=== PATIENT | female | born 1960 | race Caucasian/White ===

== ENCOUNTER → 2020-01-05 | Outpatient (CLI) | payer OTHER ==
[~2020-01-05] MED LIST: GADOBUTROL 10 MMOL/10 ML (GADAVIST) VIAL IV ONE
--- NOTE | 2020-01-05 11:03 | Diagnostic Imaging Report ---
PROCEDURE: MR imaging of the brain with and without contrast. TECHNIQUE: Multiplanar, multisequence MR imaging of the brain was performed with and without contrast. INDICATION: Headaches. Speech disturbance. COMPARISON: None. FINDINGS: No abnormal intracranial signal or enhancement. No restricted water diffusion or hemosiderin deposition. Normal morphology including the major midline structures, sella, posterior fossa and cerebellar pontine angle. No hydrocephalus or extra-axial fluid collections. Normal intracranial flow voids. The orbits are negative on this nondedicated exam. Small amount of fluid in the right mastoid. The paranasal sinuses are clear. Normal bone marrow signal. IMPRESSION: 1. Normal MRI of the brain without and with IV contrast. No acute findings. 2. Small amount of nonspecific fluid in the right mastoid. Dictated by: Dictated on workstation # [id number]
== END ==
LOC: RAD 09:20
PROVIDERS: ATTEND Family Medicine
DX: R51 Headache (principal); R47.9 Unspecified speech disturbances
CPT/HCPCS: 70553

== ENCOUNTER → 2021-03-18 | Outpatient (CLI) | payer OTHER ==
--- NOTE | 2021-03-18 11:50 | Diagnostic Imaging Report ---
INDICATION: FAMILY HX OF AORTIC ANEURYSM TECHNIQUE: Grayscale sonographic images of the abdominal aorta. CORRELATION STUDY: None FINDINGS: Abdominal Aorta Proximal: 2.1 x 2.1 cm Mid: 1.5 x 1.6 cm Distal: 1.1 x 1.1 cm Common Iliac Arteries Right SHELLEY: 0.9 x 1.1 cm Left SHELLEY: 1.4 x 1.0 cm IMPRESSION: 1. Negative for abdominal aortic aneurysm. There is slight asymmetric ectasia of the left common iliac artery. Dictated by: Dictated on workstation # [id number]
== END ==
LOC: RAD FS 11:08
PROVIDERS: ATTEND Family Medicine
DX: I77.811 Abdominal aortic ectasia (principal); Z82.49 Family history of ischemic heart disease and other diseases of the circulatory system
CPT/HCPCS: 76775

== ENCOUNTER → 2021-03-26 | Outpatient (CLI) | payer OTHER ==
--- NOTE | 2021-03-26 10:35 | Diagnostic Imaging Report ---
PROCEDURE: MRI lumbar spine. TECHNIQUE: Multiplanar, multisequence MRI of the lumbar spine was performed without contrast. INDICATION: Chronic low back pain. COMPARISON: None available. FINDINGS: Mild rotatory scoliosis of the lumbar spine with apex at L2-L3. No spondylolisthesis. No fracture or marrow replacing process. Degenerative Schmorl nodes are present involving the endplates of L2-L3 and L3-L4. No sacral insufficiency fracture. The distal thoracic cord is normal in appearance. No epidural fluid collection. Mild fatty atrophy in the paravertebral musculature may be due to disuse. No concerning abnormality in the retroperitoneum. L1-L2: Disc bulge with mild ligamentum flavum hypertrophy. There is no resultant spinal stenosis or foraminal narrowing. L2-L3: Disc bulge with mild facet osteoarthritis results in mild left neuroforaminal narrowing and mild narrowing of the left lateral recess. Overall, there is no significant spinal stenosis. L3-L4: Disc bulge with facet osteoarthritis and ligamentum flavum hypertrophy causes mild spinal stenosis and mild narrowing of the lateral recesses. Mild right and moderate to severe left foraminal narrowing. L4-L5: Disc bulge with moderate facet osteoarthritis causes mild spinal stenosis and mild narrowing of the lateral recess. No compression of the nerve roots and lateral recess. Moderate right and mild left foraminal narrowing. L5-S1: Disc bulge with moderate facet osteoarthritis. Due to intervertebral height loss and facet hypertrophy, there is moderate to severe right and mild left foraminal narrowing. No spinal stenosis. IMPRESSION: 1. Diffuse degenerative changes throughout the lumbar spine are overall mild to moderate in severity. There is no high-grade spinal stenosis but there are a few sites of mild spinal canal narrowing. 2. There is moderate to severe neuroforaminal narrowing at multiple sites due to facet osteoarthritis and intervertebral height loss. Dictated by: Dictated on workstation # [id number]
== END ==
LOC: RAD 08:45
PROVIDERS: ATTEND Family Medicine
DX: M47.816 Spondylosis without myelopathy or radiculopathy, lumbar region (principal); M51.36 Other intervertebral disc degeneration, lumbar region; M48.061 Spinal stenosis, lumbar region without neurogenic claudication
CPT/HCPCS: 72148